=== PATIENT | female | born 1995 | race Caucasian/White ===

== ENCOUNTER → 2021-08-03 07:31 | Outpatient (CLI) | payer OTHER, SELFPAY ==
[2021-08-03 08:43] LABS: COVID19 -Nasal RAPID Negative (Negative)
== END ==
PROVIDERS: Visit Provider Nurse Practitioner
DX: Z20.822 Contact with and (suspected) exposure to COVID-19 (principal); J02.9 Acute pharyngitis, unspecified
CPT/HCPCS: 87070; 87635

== ENCOUNTER 2023-08-25 10:45 | Emergency (ER) | payer OTHER, SELFPAY ==
[2023-08-25 10:49] VITALS: BP 134/76; PULSE 99; RESP 14; TEMP 37.1; O2SAT 98; BMI 32.5
--- NOTE | 2023-08-25 12:24 | ED.EYEPROB ---
HPI - Eye Problem <Erica Lindsay PA-C - Last Filed: 08/25/23 13:27> General Chief complaint: Eye Problems Stated complaint: R/ eye pain, swelling and redness Time Seen by Provider: 08/25/23 12:23 Source: patient Mode of arrival: Ambulatory History of Present Illness HPI Narrative: Patient is a 28-year-old female presenting for evaluation of pain in her right eye for the last 4 days. She reports that 5 days ago, she was concerned she may have gotten a short of plastic under her safety glasses while at work. She states that she wiped the plastic away and did not have any pain until the following evening a day later. She notes the pain started while she was playing video games in the dark 4 days ago. She says that today she has noticed some blurriness to her vision because of the clear discharge. She says that it has been painful the upper aspect of her right eye, but she denies any specific location of pain. She states that it is light sensitive and she has increased pain with general eye movement. She denies wearing contacts but does state that she wears glasses. She says that taking ibuprofen has helped. She denies any nasal congestion, cough nor throat pain or ear pain. Related Data Previous Rx's Medication Instructions Recorded erythromycin 5 mg/gram (0.5 %) eye 1 applic EYE-RIGHT QID 7 days #3.5 08/25/23 ointment grams Allergies Allergy/AdvReac Type Severity Reaction Status Date / Time No Known Drug Allergies Allergy Verified 08/25/23 10:53 Review of Systems <Erica Lindsay PA-C - Last Filed: 08/25/23 13:27> Review of Systems Narrative: See HPI Patient History <Erica Lindsay PA-C - Last Filed: 08/25/23 13:27> Social History Smoking Status: Never smoker Smoking Status: Never smoker alcohol intake frequency: a few times a week Substance Use Type: does not use Exam <Erica Lindsay PA-C - Last Filed: 08/25/23 13:27> Initial Vital Signs Initial Vital Signs: Vital Signs Temperature 98.8 F 08/25/23 10:49 Pulse Rate 99 H 08/25/23 10:49 Respiratory Rate 14 08/25/23 10:49 Blood Pressure 134/76 08/25/23 10:49 Pulse Oximetry 98 08/25/23 10:49 Oxygen Delivery Method Room Air 08/25/23 10:49 GENERAL: 28 year old patient appears stated age. Well-developed patient, in no acute distress. HEAD: Atraumatic. Normocephalic. EYES: Pupils round, right pupil appears slightly smaller compared to left, but reacts equally bilaterallly to light and accommodation. Extraocular motions intact with some pain with medial right eye movement. Peripheral vision intact bilaterally. No scleral icterus. Right eye conjunctiva is uniformly injected with no specific perilimbic injection or sparing, eversion of right eyelid shows no foreign body. Fluorescein staining showed very light haziness around the cornea with no punctate lesions or specific uptake or evidence of foreign body. Tonometry pressures of right showed 26 and left showed 22. Patient was blinking during examination of right eye. NECK: Trachea midline. Non tender. RESPIRATORY: Speaking comfortably in normal tone of voice with no difficulty breathing. NEURO: AOx3. SKIN: No rash or erythema of visible areas <Gretel Augustin DO - Last Filed: 08/25/23 19:48> Initial Vital Signs Initial Vital Signs: Vital Signs Temperature 98.8 F 08/25/23 10:49 Pulse Rate 99 H 08/25/23 10:49 Respiratory Rate 14 08/25/23 10:49 Blood Pressure 134/76 08/25/23 10:49 Pulse Oximetry 98 08/25/23 10:49 Oxygen Delivery Method Room Air 08/25/23 10:49 Course <Erica Lindsay PA-C - Last Filed: 08/25/23 13:27> Orders Ordered: Discontinued Medications Fluorescein Sodium (Fluorescein 1 Mg Strip) 1 mg EYE-RIGHT NOW ONE Stop: 08/25/23 12:51 Last Admin: 08/25/23 13:15 Dose: 1 mg Documented By: RB Proparacaine HCl (Proparacaine 0.5% Ophth Mar) 1 drops EYE-RIGHT NOW ONE Stop: 08/25/23 12:51 Last Admin: 08/25/23 13:13 Dose: 1 drop Documented By: RB Vital Signs Vital signs: Vital Signs - 8 hr 08/25/23 13:30 Temperature 98.4 F Pulse Rate 88 Respiratory Rate 16 Blood Pressure 136/72 Pulse Oximetry 97 Oxygen Delivery Method Room Air <Gretel Augustin DO - Last Filed: 08/25/23 19:48> Orders Ordered: Discontinued Medications Fluorescein Sodium (Fluorescein 1 Mg Strip) 1 mg EYE-RIGHT NOW ONE Stop: 08/25/23 12:51 Last Admin: 08/25/23 13:15 Dose: 1 mg Documented By: RB Proparacaine HCl (Proparacaine 0.5% Ophth Mar) 1 drops EYE-RIGHT NOW ONE Stop: 08/25/23 12:51 Last Admin: 08/25/23 13:13 Dose: 1 drop Documented By: RB Vital Signs Vital signs: Vital Signs - 8 hr 08/25/23 13:30 Temperature 98.4 F Pulse Rate 88 Respiratory Rate 16 Blood Pressure 136/72 Pulse Oximetry 97 Oxygen Delivery Method Room Air MDM - Eye Problem <Erica Lindsay PA-C - Last Filed: 08/25/23 13:27> MDM Narrative Medical decision making narrative: Patient is a 28-year-old female presenting for evaluation of right red eye pain with movement in some blurriness and clear discharge x4 days. Five days ago, she reports exposure of her right eye just some plastic shots. She states that her right eye was nonpainful until playing video games in the dark the following day. She is noted since then redness of the right eye with some pain with movement. Visual exam showed equal acuity, fluorescein staining showed some mild inflammation around right pupil, no punctate lesions noted, no uptake indicating foreign body or corneal ulcer, nor mid dilated pupil noted. Reviewed with Dr. Augustin who also observed fluorescein eye stain and tonometry. Discussed with patient that follow up with eye doctor is recommended for further eye exam. Due to presence of inflammation and possible exposure of plastic shards, recommend coverage with erythromycin ointment. We discussed follow up to the ER indications including increased eye pain, change in vision or other concerning symptoms. Multiple etiologies for patient's symptoms considered including, but not limited to: Corneal ulcer, corneal abrasion, conjunctivitis, acute angle glaucoma, iritis Consultations: discussed case with Dr. Augustin. Patient's symptoms improved over duration of stay with above-stated therapies. Findings and discharge diagnosis discussed with patient/family followed by verbalization of understanding Return precautions discussed with patient/family whom verbalize understanding of diagnosis and plan Discharge Plan Departure Patient Disposition: Home Clinical Impression: Corneal abrasion Qualifiers: Encounter type: initial encounter Laterality: right Qualified Code(s): S05.01XA - Injury of conjunctiva and corneal abrasion without foreign body, right eye, initial encounter Activity Restrictions/Additional Instructions: Thank you for coming in today for care. You were seen for evaluation of right eye redness and pain for the last 4 days. We checked a fluorescein stain exam which did not show any evidence of foreign body, but it did show some possible inflammation. It is possible that you have a corneal abrasion, and so I will cover with a topical antibiotic. I recommend continued follow up with an eye doctor. You may call [facility] at [phone] tomorrow to follow up. I recommend that if you should develop worsening eye pain, change in vision or other concerning symptoms please follow up in the emergency department for further evaluation. Prescriptions: New erythromycin 5 mg/gram (0.5 %) ointment 1 applic EYE-RIGHT QID 7 Days Qty: 3.5 0RF Referrals: Miscellaneous,Doctor, MD [Primary Care Provider] - Stand Alone Forms: Patient Portal/API ED Sign-out <Gretel Augustin DO - Last Filed: 08/25/23 19:48> Cosign ED Attending Cosgraceature Attestation: I was immediately available in the department for consultation. Documentation has been reviewed. Patient seen evaluated by myself as well, patient has some hazy fluorescein uptake that is very slight in the external edge of the cornea, no other scleral uptake, no abrasion, patient does not have any ulcerations. Total pen has 26 on the right 22 on the left. Patient is injected on the right but no photophobia. She is otherwise quite comfortable making my suspicion for glaucoma less likely. Discussed with patient like her to see Ophthalmology tomorrow, referral given to see local ophthalmology call 1st thing in the with return precautions. Patient was started on a antibiotic drops.
[2023-08-25] MEDS: PROPARACAINE 0.5% OPHTH SOL 1 DROPS EYE-RIGHT (13:13)
[2023-08-25] MEDS: FLUORESCEIN 1 MG STRIP EYE-RIGHT (13:15)
[2023-08-25 13:30] VITALS: BP 136/72; PULSE 88; RESP 16; TEMP 36.9; O2SAT 97
== END 2023-08-25 13:31 | disposition home or self-care (01) ==
PROVIDERS: Emergency Provider Physician Assistant
DX: S05.01XA Injury of conjunctiva and corneal abrasion without foreign body, right eye, initial encounter (principal); X58.XXXA Exposure to other specified factors, initial encounter
CPT/HCPCS: 99282

== ENCOUNTER → 2023-10-07 07:37 | Outpatient (CLI) | payer OTHER, SELFPAY ==
[2023-10-07 08:58] LABS: Rheumatoid Factor < 8.6 IU/mL (<12.0)
[2023-10-08 06:40] LABS: RPR Screen Non Reactive (Non Reactive)
[2023-10-10 17:53] LABS: ANA Screen, IFA Negative (.)
[2023-10-16 12:32] LABS: Treponema pallidum Antibodies Non Reactive
[2023-10-16 14:13] LABS: HLA B27 Positive (.)
== END ==
PROVIDERS: Referring Provider Ophthalmology; Visit Provider Ophthalmology
DX: H20.00 Unspecified acute and subacute iridocyclitis (principal)
CPT/HCPCS: 36415; 81374; 86038; 86430; 86592; 86780